=== PATIENT | male | born 1985 | race Caucasian/White ===

== ENCOUNTER 2021-01-26 22:57 | Emergency (ER) | payer OTHER, SELFPAY ==
--- NOTE | ~2021-01-26 | XR_ITS ---
EXAMINATION: XR chest 1V portable DATE: 01/26/2021 23:21 INDICATION: Palpitations. TECHNIQUE: A single frontal view of the chest was obtained on 2 radiographs. COMPARISON: None. FINDINGS: There is no pneumonia, pleural effusion, pneumothorax. Cardiomegaly is noted. There is a le ft chest wall pacer with leads in the right atrium and right ventricle. There is an additional lead i n right ventricle. IMPRESSION: 1. Cardiomegaly. Reviewed, dictated and finalized at location A. IMPRESSION: 1. Cardiomegaly.
[2021-01-26 23:01] VITALS: BP 123/76; PULSE 78; RESP 20; TEMP 36.8; O2SAT 98
--- NOTE | 2021-01-26 23:06 | ECG_ITS ---
Measurements Intervals [place] Rate: 80 P: 237 MS: 132 QRS: 175 QRSD: 130 T: 2 QT: 408 QTc: 472 Interpretive Statements ECTOPIC ATRIAL RHYTHM RIGHT AXIS DEVIATION RIGHT BUNDLE BRANCH BLOCK BASELINE ARTIFACT- I, II, III, AVR, AVL, AVF, V4 ABNORMAL ECG Electronically Signed On 01-27-2021 6:50:24 CDT by Giancarlo Rueda D.O.
--- NOTE | 2021-01-26 23:15 | ED.GENADULT ---
HPI - General Adult General Chief complaint: Arrhythmia/Palpitations Stated complaint: heart palpitation Time Seen by Provider: 01/26/21 23:05 History of Present Illness HPI narrative: Patient is a 35-year-old gentleman who presents the emergency department with chief complaint of palpitations. Patient reports that this evening he was drinking and started having palpitations. The patient states he has been having palpitation since about age 6 and has had open heart surgery and has a pacemaker. Patient states that tonight he thought he was going to and went and laid down in the middle of the street EMS was called and the patient was transported to the emergency. Patient reports symptoms are not worsened by anything or they improved by Related Data Home Medications Medication Instructions Recorded Confirmed metoprolol tartrate 01/26/21 Allergies Allergy/AdvReac Type Severity Reaction Status Date / Time No Known Allergies Allergy Verified 01/26/21 23:09 Review of Systems Review of Systems: A 10 system review of systems was completed on the patient and is negative except for what is stated in the HPI. Nursing and ancillary documentation was reviewed. [facility] Social History Social History Smoking status: Former smoker Alcohol intake: current Exam Narrative: GENERAL: Well-appearing, well-nourished, and in no acute distress. HEAD: Normocephalic, atraumatic. EYES: PERRLA and EOMI. ENT: Nares clear, no rhinorrhea or epistaxis. Mucous membranes moist. NECK: Supple. CHEST: Clear to auscultation. No respiratory distress. HEART: Regular rate and rhythm. No murmur heard. Normal peripheral pulses. ABDOMEN: Soft, nontender, nondistended, normal active bowel sounds. EXTREMITIES: Normal range of motion. No edema. SKIN: Warm, dry, no rash. NEURO: No focal deficits. Alert and oriented x3. PSYCH: Normal mood and affect. Course Course Emergency Course: EKG shows sinus rhythm with a rate of 80 right bundle branch block no ST elevation or ST depression there are some inverted T waves Vital Signs Vital signs: Vital Signs Temperature 36.8 C 01/26/21 23:01 Pulse Rate 78 01/26/21 23:01 Respiratory Rate 20 01/26/21 23:01 Blood Pressure 123/76 01/26/21 23:01 Pulse Oximetry 98 01/26/21 23:01 Temperature 36.8 C 01/26/21 23:01 Pulse Rate 78 01/26/21 23:01 Respiratory Rate 20 01/26/21 23:01 Blood Pressure 123/76 01/26/21 23:01 Pulse Oximetry 98 01/26/21 23:01 Medical Decision Making Vital Signs Vital Signs: Vital Signs Temperature 36.8 C 01/26/21 23:01 Pulse Rate 78 01/26/21 23:01 Respiratory Rate 20 01/26/21 23:01 Blood Pressure 123/76 01/26/21 23:01 Pulse Oximetry 98 01/26/21 23:01 Temperature 36.8 C 01/26/21 23:01 Pulse Rate 78 01/26/21 23:01 Respiratory Rate 20 01/26/21 23:01 Blood Pressure 123/76 01/26/21 23:01 Pulse Oximetry 98 01/26/21 23:01 Lab Data Result diagrams: 01/26/21 23:11 01/26/21 23:11 Labs: Lab Results 01/26/21 01/26/21 01/26/21 Range/Units 23:11 23:11 23:11 WBC 11.0 H (4.5-10.0) K/mm3 RBC 4.56 L (4.6-6.20) M/mm3 Hgb 15.0 (14.0-18.0) g/dL Hct 45.9 (42.0-52.0) % MCV 100.7 H (80-100) fl MCH 32.9 (26-34) pg MCHC 32.7 (32-36) g/dl RDW 13.2 (11.5-14.5) % Plt Count 260 (150-375) k/mm3 MPV 9.6 (7.4-10.4) fl Immature Gran % (Auto) 0.4 (0-0.5) % Neut % (Auto) 52.3 (45.5-73.1) % Lymph % (Auto) 38.2 (18.3-44.2) % [place] % (Auto) 5.2 (2.6-8.5) % Eos % (Auto) 3.1 (0-4.4) % Baso % (Auto) 0.8 (0.2-1.2) % Lymph # (Auto) 4.21 H (0.9-3.2) K/mm3 [place] # (Auto) 0.6 (0.1-0.6) K/mm3 Eos # (Auto) 0.3 (0-0.3) K/mm3 Baso # (Auto) 0.1 (0.0-0.1) K/mm3 Abs Immat Gran (auto) 0.04 H (0.00-0.031) K/mm3 Absolute Neuts (auto) 5.8 (1.3-6.7)
[2021-01-26 23:18] LABS: Basophils Absolute Auto 0.1 K/mm3 (0.0-0.1); Basophils Percent Auto 0.8 % (0.2-1.2); Eosinophils Absolute Auto 0.3 K/mm3 (0-0.3); Eosinophils Percent Auto 3.1 % (0-4.4); Hematocrit 45.9 % (42.0-52.0); Immature Granulocyte Absolute 0.04 K/mm3 (0.00-0.031); Immature Granulocyte Percent A 0.4 % (0-0.5); Lymphocytes Absolute Auto 4.21 K/mm3 (0.9-3.2); Lymphocytes Percent Auto 38.2 % (18.3-44.2); Mean Corpuscular HGB Conc 32.7 g/dl (32-36); Mean Corpuscular Hemoglobin 32.9 pg (26-34); Mean Corpuscular Volume 100.7 fl (80-100); Mean Platelet Volume 9.6 fl (7.4-10.4); Monocytes Absolute Auto 0.6 K/mm3 (0.1-0.6); Monocytes Percent Auto 5.2 % (2.6-8.5); Neutrophils Absolute Auto 5.8 K/mm3 (1.3-6.7); Neutrophils Percent Auto 52.3 % (45.5-73.1); Platelet Count Result 260 k/mm3 (150-375); Red Blood Count 4.56 M/mm3 (4.6-6.20); Red Cell Distribution Width 13.2 % (11.5-14.5)
[2021-01-26 23:27] LABS: INR 0.9; Prothrombin Time 12.4 Seconds (11.1-14.7)
[2021-01-26 23:28] LABS: Partial Thromboplastin Time 27.9 SECONDS (22.3-36.8)
[2021-01-26 23:30] LABS: Ethanol 278 mg/dL (<10)
[2021-01-26 23:31] LABS: Alanine Aminotransferase 99 U/L (4-50); Albumin Level 4.8 g/dL (3.5-5.1); Alkaline Phosphatase 92 U/L (38-126); Anion Gap 17 mmol/L (8-16); Aspartate Amino Transferase 95 U/L (17-59); Bilirubin,Total 0.5 mg/dL (0.2-1.3); Blood Urea Nitrogen 7 mg/dL (9-20); Carbon Dioxide 25 mmol/L (22-30); Chloride 104 mmol/L (98-107); Estimated CRCL calculation 206 ml/min; Estimated Glomerular Filt Rate > 60; Glucose 150 mg/dL (65-110); Lipase 142 U/L (23-300); Magnesium 1.9 mg/dL (1.6-2.3); Potassium 3.8 mmol/L (3.4-5.0); Sodium 146 mmol/L (137-145)
[2021-01-26 23:33] LABS: Atypical Lymphocytes Present; Platelet Estimate Adequate (Adequate)
[2021-01-26 23:42] LABS: Troponin I 0.014 ng/mL (0.000-0.034)
[2021-01-27 00:30] LABS: Add Urine Microscopic? NO; Appearance Urine Clear (Clear); Bilirubin Urine Negative (Negative); Blood Urine Negative (Negative); Color Urine Straw (Yellow); Glucose Urine UA Negative (Negative); Ketones Urine Negative (Negative); Leukocyte Esterase Ur Negative LEU/UL (Negative); Nitrate Urine Negative (Negative); Protein Urine Negative (Negative); Urobilinogen Urine Negative mg/dL (<2.0)
[2021-01-27 00:33] LABS: Specific Grav Ur 1.004 (1.001-1.035)
[2021-01-27 01:07] VITALS: BP 142/91; PULSE 63; RESP 18; O2SAT 98
== END 2021-01-27 00:52 | disposition home or self-care (01) ==
PROVIDERS: Emergency Provider Emergency Medicine; PCP Family Medicine
DX: R00.2 Palpitations (principal); F10.129 Alcohol abuse with intoxication, unspecified; Z95.0 Presence of cardiac pacemaker; Z87.891 Personal history of nicotine dependence; Y90.8 Blood alcohol level of 240 mg/100 ml or more
CPT/HCPCS: 36415; 71045; 80053; 80307; 81003; 83690; 83735; 84484; 85025; 85610; 85730; 93005; 99284

== ENCOUNTER 2021-08-16 20:40 | Emergency (ER) | payer BC, SELFPAY ==
--- NOTE | ~2021-08-16 | XR_ITS ---
EXAMINATION: XR chest 2V Exam Date/Time: 08/16/2021 20:55 CDT CLINICAL HISTORY: SHORT OF BREATH X 1 WEEK, URI, HX CHF, NO LUNG HX Comparison: 01/26/2021.. RESULT: Lines, tubes, and devices: Left chest pacer with intact leads. Lungs and pleura: Diffuse reticular pattern with indistinct vascular margins. Somewhat more focal armstrong zy opacities in the lung bases. Cardiomediastinal silhouette: Stable cardiomediastinal silhouette. Other: No acute osseous or upper abdominal finding. IMPRESSION: Pulmonary findings may represent pulmonary edema with bibasilar atelectasis. Infection is not exclude d. Reviewed, dictated and finalized at location K. IMPRESSION: Pulmonary findings may represent pulmonary edema with bibasilar atelectasis. In fection is not excluded.
[2021-08-16 20:47] VITALS: BP 136/91; PULSE 72; RESP 16; TEMP 36.5; O2SAT 93
--- NOTE | 2021-08-16 22:11 | ECG_ITS ---
Measurements Intervals [place] Rate: 63 P: 241 AL: 172 QRS: 167 QRSD: 121 T: 150 QT: 486 QTc: 498 Interpretive Statements ELECTRONIC ATRIAL PACEMAKER RIGHT AXIS DEVIATION RIGHT BUNDLE BRANCH BLOCK ABNORMAL ECG Electronically Signed On 08-17-2021 6:15:57 CDT by Giancarlo Rueda D.O.
[2021-08-16 22:58] VITALS: O2SAT 93
[2021-08-16 23:02] VITALS: BP 151/106; PULSE 68; RESP 18; O2SAT 92
[2021-08-16 23:16] LABS: Basophils Absolute Auto 0.1 K/mm3 (0.0-0.1); Eosinophils Absolute Auto 0.3 K/mm3 (0-0.3); Eosinophils Percent Auto 3.4 % (0-4.4); Hematocrit 43.7 % (42.0-52.0); Hemoglobin 13.7 g/dL (14.0-18.0); Immature Granulocyte Absolute 0.02 K/mm3 (0.00-0.031); Immature Granulocyte Percent A 0.3 % (0-0.5); Lymphocytes Absolute Auto 2.68 K/mm3 (0.9-3.2); Lymphocytes Percent Auto 33.7 % (18.3-44.2); Mean Corpuscular HGB Conc 31.4 g/dl (32-36); Mean Corpuscular Hemoglobin 31.9 pg (26-34); Mean Corpuscular Volume 101.6 fl (80-100); Mean Platelet Volume 9.5 fl (7.4-10.4); Monocytes Absolute Auto 0.5 K/mm3 (0.1-0.6); Monocytes Percent Auto 6.3 % (2.6-8.5); Neutrophils Absolute Auto 4.4 K/mm3 (1.3-6.7); Neutrophils Percent Auto 55.3 % (45.5-73.1); Platelet Count Result 246 k/mm3 (150-375); Red Cell Distribution Width 13.1 % (11.5-14.5)
[2021-08-16 23:29] LABS: Alanine Aminotransferase 34 U/L (4-50); Albumin Level 4.6 g/dL (3.5-5.1); Alkaline Phosphatase 81 U/L (38-126); Anion Gap 12 mmol/L (8-16); Aspartate Amino Transferase 59 U/L (17-59); Bilirubin,Total 0.7 mg/dL (0.2-1.3); Blood Urea Nitrogen 4 mg/dL (9-20); Calcium 8.6 mg/dL (8.4-10.2); Carbon Dioxide 26 mmol/L (22-30); Chloride 103 mmol/L (98-107); Estimated CRCL calculation 188 ml/min; Estimated Glomerular Filt Rate > 60; Glucose 98 mg/dL (65-110); Potassium 3.6 mmol/L (3.4-5.0); Sodium 141 mmol/L (137-145)
[2021-08-16 23:41] LABS: NT Pro B Type Natriuretic Pept 2920 pg/mL (5-100); Troponin I 0.017 ng/mL (0.000-0.034)
[2021-08-16 23:52] LABS: Influenza A QL RT-PCR Negative (Negative); Influenza B QL RT-PCR Negative (Negative); SARS-CoV-2 RNA PCR Negative
--- NOTE | 2021-08-17 00:18 | ED.GENADULT ---
HPI - General Adult General Chief complaint: Upper Respiratory Infection Stated complaint: shortness of breath Time Seen by Provider: 08/16/21 21:46 History of Present Illness HPI narrative: Patient is a 35-year-old male with a history of transposition of the great arteries, status post 2 open heart surgeries, symptomatic bradycardia status post pacemaker, for evaluation of shortness of breath over the past month. Patient states his shortness of breath is most notable with exertion and when lying flat, states that he has about 3 pillow orthopnea and paroxysmal nocturnal dyspnea. Patient reports some bilateral lower extremity swelling over the past month, which is new for him. Additionally reporting some intermittent chest tightness present with exertion, resolves with rest. He had some sinus congestion and intermittent fevers at the beginning of the month last month, but this resolved without intervention. He presents today due to concerns of low pulse ox readings at home in the high 80s. He has close follow-up with his resident services manager, reportedly had an echo 3 months ago which was normal. Related Data Home Medications Medication Instructions Recorded Confirmed metoprolol tartrate 01/26/21 Allergies Allergy/AdvReac Type Severity Reaction Status Date / Time No Known Allergies Allergy Verified 08/16/21 23:02 Review of Systems Review of Systems: Gen.: Denies fevers or chills Eyes: Denies eye pain or visual change ENT: Reports congestion, resolved. Respiratory: Reports shortness of breath and cough. CV: Reports chest pain. Denies palpitations GI: Denies abdominal pain nausea, emesis or diarrhea : denies burning, urgency, frequency or hematuria Musculoskeletal: Denies back pain or muscle pain Neuro: Denies numbness, tingling, weakness or focal weakness Skin: Denies rash Except as documented, all other systems reviewed and negative All systems reviewed & are unremarkable except as noted in HPI and below [facility] Social History Social History Smoking status: Former smoker Alcohol intake: current Exam Narrative: APPEARANCE: Uncomfortable appearing. Head normocephalic and atraumatic. EYES: PERRLA/EOMI, conjunctivae clear NOSE: No nasal drainage EARS: External ear normal in appearance THROAT: Oropharynx is clear. Mucous membranes are moist. NECK: Supple. No adenopathy, no masses. RESPIRATORY: Airway patent, respirations nonlabored. Clear to auscultation bilaterally, no rales, rhonchi, wheezing. CARDIOVASCULAR: Regular rate and rhythm without murmurs, rubs, or gallops. ABDOMINAL: Normoactive bowel sounds. Soft, nontender, nondistended. No rebound tenderness or guarding. MUSCULOSKELETAL: 2+ pitting edema to bilateral lower extremities. extremities are warm and well-perfused. Moves all extremities well. NEURO: Normal speech. No focal neurologic deficits. SKIN: Skin is warm and dry. No rashes. PSYCHIATRIC: Normal affect/mood. Course Course Emergency Course: Spoke with Dr. Melyssa Alberto, resident services manager at [place], who recommended transfer and direct admission. Updated patient on findings suspicious for pulmonary edema and heart failure. Patient is concerned with the cost of admission, and is adamant that he does not want to be admitted or transferred at this time. Discussed at length with patient risks of going home tonight including and disability, he ultimately decided to leave AGAINST MEDICAL ADVICE. He is of sound mind, and understands he may return to the emergency department for evaluation if he changes his mind. He states he will follow-up with his resident services manager tomorrow, but is adamant he does not want to be admitted. AMA form signed. Vital Signs Vital signs: Vital Signs Temperature 97.7 F 08/16/21 20:47 Pulse Rate 72 08/16/21 20:47 Respiratory Rate 16 08/16/21 20:47 Blood Pressure 136/91 H 08/16/21 20:47 Pulse Oximetry 93 08/16/21 2
[2021-08-17] MEDS: FUROSEMIDE INJ 40 MG/4 ML VIAL IV PUSH (00:19)
[2021-08-17 00:22] VITALS: PULSE 73; RESP 16; O2SAT 92
[2021-08-17 00:46] VITALS: BP 141/111
--- NOTE | 2021-08-17 00:49 | PC.NURSE ---
Pt ambulated to restroom with steady gait, in no obvious distress.
[2021-08-17 01:02] VITALS: PULSE 76; RESP 16; O2SAT 94
== END 2021-08-17 01:15 | disposition left against medical advice (07) ==
PROVIDERS: Physician Assistant; Emergency Provider Emergency Medicine; PCP Family Medicine
DX: J81.1 Chronic pulmonary edema (principal); Z20.822 Contact with and (suspected) exposure to COVID-19; Z87.891 Personal history of nicotine dependence; Z95.0 Presence of cardiac pacemaker
CPT/HCPCS: 36415; 71046; 80053; 83880; 84484; 85025; 87502; 93005; 96374; 99284; C9803; J1940; U0003; U0005